=== PATIENT | male | born 1960 | race Caucasian/White ===

== ENCOUNTER → 2020-08-10 | Outpatient (CLI) | payer BC, OTHER | LOC: MRI 08-09 09:55 → CAT 08-09 11:25 → ULTRA 11:02 | PROVIDERS: ATTEND Family Medicine | DX: N28.1 Cyst of kidney, acquired (principal); K57.30 Diverticulosis of large intestine without perforation or abscess without bleeding; K76.89 Other specified diseases of liver ==